=== PATIENT | female | born 1965 | race Hispanic/Latino ===

== ENCOUNTER 2020-08-07 16:11 | Emergency (ER) | payer SELFPAY ==
[2020-08-07 19:30] VITALS: BP 189/103
[2020-08-07 20:04] LABS: Bilirubin,Urine NEG (Negative); Blood,Urine SM (Negative); Color,Urine Yellow (Yellow); Mucus,Urine FEW /HPF; Protein,Urine <15 mg/dL mg/dL (Negative)
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
== END 2020-08-07 20:40 | disposition home or self-care (01) ==
LOC: ED 16:11
DX: I10 Essential (primary) hypertension (principal); M54.5 Low back pain; F17.200 Nicotine dependence, unspecified, uncomplicated; F12.10 Cannabis abuse, uncomplicated
CPT/HCPCS: 81001; 99283